=== PATIENT | male | born 1975 | race Caucasian/White ===

== ENCOUNTER 2019-02-16 14:28 | Outpatient (CLI) | payer MEDICAID, SELFPAY ==
--- NOTE | 2019-02-16 14:41 | DI.RAD_ITS ---
EXAM: XR KNEE LT 3V AP,LAT,DELORES INDICATION: Knee Pain. COMPARISON: No exams were available for comparison TECHNIQUE: 2D digital imaging was performed. FINDINGS: Joint spaces are well maintained. There is minimal periarticular spurring. No joint effusion is see n. IMPRESSION: Minimal degenerative changes.
== END 2019-02-16 14:48 ==
PROVIDERS: Visit Provider Student in an Organized Health Care Education/Training Program
DX: M25.562 Pain in left knee (principal); M17.12 Unilateral primary osteoarthritis, left knee
CPT/HCPCS: 73562

== ENCOUNTER 2019-02-25 01:50 | Outpatient (CLI) | payer MEDICAID, SELFPAY ==
--- NOTE | 2019-02-25 10:12 | DI.MRI_ITS ---
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 TECHNIQUE: Multiplanar multisequence MRI was performed. COMPARISON: XR KNEE LT 3V AP,LAT,DELORES from 02/16/2019 FINDINGS: There is a small joint effusion. There are small focal defects at the apex of the patellar cartilage . A larger area, measuring 9 millimeters, of high signal is seen within the cartilage of the medial patellar facet. It involves the entire cartilage thickness but there is no focal thinning. The unde rlying marrow signal is normal. Patellar retinacula and extensor mechanism appear intact. The cruciate and collateral ligaments appear intact. There is mild metallic artifact in the region o f the posterior horn of the medial meniscus consistent with previous surgery. No superimposed tear i s seen. The posterior horn and body appear diminutive and show intrasubstance signal. The lateral m eniscus shows mild intrasubstance signal consistent with degeneration. No cartilage defects are seen involving the femoral condyles or tibial plateaus. IMPRESSION: No evidence of lateral meniscal tear. Postsurgical appearance of the posterior horn and body of the medial meniscus without definite superimposed tear. Small focal cartilage defect at the apex of the patella. High signal in the cartilage of the medial patellar facet extending down to bone without focal defect.
== END 2019-02-25 02:10 ==
PROVIDERS: Visit Provider Student in an Organized Health Care Education/Training Program
DX: M25.562 Pain in left knee (principal); M22.42 Chondromalacia patellae, left knee; M23.92 Unspecified internal derangement of left knee; M23.204 Derangement of unspecified medial meniscus due to old tear or injury, left knee
CPT/HCPCS: 73721

== ENCOUNTER 2020-03-09 02:33 | Outpatient (CLI) | payer MEDICAID, SELFPAY ==
--- NOTE | 2020-03-09 08:50 | DI.MRI_ITS ---
EXAM: MR LOWER JOINT LT WO CLINICAL HISTORY: Failed nonop,MEDIAL MENISCUS TEAR,CHONDROMALACIA,DERANGEMENT TECHNIQUE: Multiplanar multisequence MRI of the knee was performed. COMPARISON: MR MR LOWER JOINT LT WO from 02/25/2019 FINDINGS: EFFUSION: There is a small joint effusion. There is no Howard cyst in the popliteal fossa. MARROW:There is no evidence of fracture or prominent bone contusion. A small degenerative subarticul ar cyst is noted in the inner aspect of the medial tibial plateau, unchanged. There are no significa nt osseous lesions. PATELLOFEMORAL COMPARTMENT: The quadriceps tendon is intact. The patellar ligament is intact. Again noted is area of significant signal abnormality in retropatellar cartilage the most medial aspe ct of the medial facet which again is noted to involve the entire thickness of the cartilage but with out significant focal thickening nor abnormal intraosseous signal within the subjacent patella. Ther e is also again noted a small superficial defect in the retropatellar cartilage over the mid aspect, unchanged.There is no abnormal intraosseous signal nor fracture evident within the patella. No suero lar retinacular tears and no evidence to suggest recent patellar dislocation. CRUCIATE LIGAMENTS: The anterior cruciate ligament is intact.The posterior cruciate ligament is intac t. MEDIAL COMPARTMENT/MEDIAL MENISCUS: There is subtle evidence of prior meniscal surgery. There is a t ear of the posterior horn of medial meniscus. Tear configuration is somewhat complex but the root of the posterior horn appears intact. There is no meniscocapsular separation. There is mild extrusion of the anterior horn. There is minimal signal abnormality in the overlying hyaline cartilage over the medial femoral condyl e. No osteochondral defects. No subarticular bone edema. There is a small marginal osteophyte off the inner aspect of the medial femoral condyle again noted. MEDIAL COLLATERAL LIGAMENT: Intact LATERAL COMPARTMENT/LATERAL MENISCUS: There is no evidence of lateral meniscal tear.There are no christopher dral defects, osteochondral defects, subarticular marrow edema, nor osteophytes evident. ILIOTIBIAL BAND: Intact LATERAL COLLATERAL LIGAMENT COMPLEX: The fibular collateral ligament is intact. The biceps femoris t endon is intact.Popliteus muscle and tendon are intact. IMPRESSION: 1. There is a evidence of prior medial meniscal surgery. 2. There is mildly complex tear of the posterior horn of the medial meniscus evident. No prominent e xtrusion nor intrusion. No bone edema or osteochondral defects. 3. Cruciate and collateral ligaments are intact 4. The previously described abnormalities in the retropatellar cartilage appear unchanged from the pr ior MRI study performed 1 year ago. DATA REPOSITORY:
== END 2020-03-09 02:53 ==
PROVIDERS: PCP Nurse Practitioner Family; Visit Provider Student in an Organized Health Care Education/Training Program
DX: S83.232A Complex tear of medial meniscus, current injury, left knee, initial encounter (principal); M22.42 Chondromalacia patellae, left knee
CPT/HCPCS: 73721

== ENCOUNTER 2020-04-13 07:50 | Day surgery (SDC) | payer MEDICAID, SELFPAY ==
[2020-04-13] VITALS (9 sets, daily range): BP systolic 109–137; BP diastolic 53–80; PULSE 55–71; RESP 10–17; TEMP 36.3–36.7; O2SAT 96–98
[2020-04-13] MEDS: Lactated Ringers 1,000 ML 100 ML IV (08:26)
[2020-04-13] MEDS: ceFAZolin 2 GM/50 ML BAG IVPB (10:17)
[2020-04-13] MEDS: EPINEPHrine 30 MG/30 ML VIAL (11:04)
--- NOTE | 2020-04-13 12:14 | W.PM.OP ---
Date of service: 04/13/20 Time of Service: 11:30 Operative Note Operative Note DATE OF PROCEDURE: 04/13/20 PRE-OP DIAGNOSIS: Left knee 1. Medial meniscus re-tear 2. Hardware failure POST-OP DIAGNOSIS: same PROCEDURE: Left knee 1. Partial medial meniscectomy, CPT #98736 2. Removal of hardware, CPT # 54223 SURGEON: Eusebio Mejia IMPROVEMENT DIRECTOR: Manas Sagastume ANESTHESIA TYPE: Local By Surgeon and General LMA/ETT Refer to Anesthesia Record ESTIMATED BLOOD LOSS: 5 PATHOLOGY: none sent TOURNIQUET TIME: 0 COMPLICATIONS: None Patient was transported to: PACU Patient's condition: stable Indications: Please see complete medical record for details. Findings: Significant retear posterior horn medial meniscus body with radial and horizontal extension and unstable flaps at both the anterior and posterior margins. Loose failure of prior all inside repair device. Localized grade 2?3 chondromalacia most posterior tibial plateau. Mild patellofemoral synovitis. Intact ACL, PCL, lateral compartment, and lateral meniscus. Procedure Description: In the operating room, genral anesthesia was induced. The patient was positioned supine on the operating room table. All bony prominences were well-padded. Preoperative antibiotics were administered. The knee was prepped and draped in the usual sterile fashion. The correct patient, procedure, and side of the procedure were all verified prior to incision. Exam under anesthesia was performed. 10 cc of 1% lidocaine containing epinephrine was infiltrated about the previous anterior medial and anterior lateral knee arthroscopy portals. The prior surgeons portals were established and a complete diagnostic arthroscopy was performed with relevant findings detailed above. The probe was used to examine the medial meniscus complex tear. There was significant fraying loose cartilage flaps both superiorly, inferiorly, anterior and posterior. The radial extension was near the meniscocapsular junction. There was obvious failure of at least one of the all inside devices with exposed suture and plastic material. A meniscal biter was then used to amputate the free flaps anteriorly and posteriorly. A mechanical shaver was then used to morselized and remove this tissue. A pituitary grasper was then used to retrieve in entirety the loose all inside meniscus repair device that had failed about this retear. There were no obvious additional devices although the prior operative report stated 5 in total had been placed. Meniscal biters were then used to contour the meniscal remnant and remove additional tissue as needed until a stable rim was established into medical body and across the posterior horn near the root. Work and viewing was alternate between portals. The shaver was then used to ensure stable tissue remained and all frayed and unstable tissue have been removed. The probe confirmed stable medial meniscus margin, stable meniscal root, and exposed an additional suture about the radial most aspect of the tear that was loose and removed using meniscal biter. The arthroscope was directed through the notch posteriorly there was no additional meniscal capsular tear or hardware present posteriorly. Care was taken to preserve as much meniscus tissue as possible. The meniscal remnant was fairly blake and preserved in the posterior horn and body with the majority of the injury zone being at the junction however the radial extent was not subtotal and there was a superior cuff of tissue that remained. Mild cartilage fraying of the posterior tibia was debrided using mechanical shaver. In extension mechanical shaver was used to debride mild synovitis in the patellofemoral compartment. Under direct arthroscopic visualization an 18-gauge needle was passed into the knee from superior lateral to the superior patellar pouch. The knee was copiously irrigated with arthroscopic fluid until there was a clear effluent before being drained of all fluid. The anteromedial anterolateral portals were closed in 3-0 Monocryl in a buried interrupted fashion. 20 cc of 1% lidocaine with epinephrine containing 4 mg of morphine was infiltrated into the knee through the previously placed needle. Mastisol, Steri-Strips, dry 4 x 4 gauze, and sterile soft roll wrapped about the knee. The right lower extremity was then wrapped in a gentle compressive Matthew bandage. The patient awoke from anesthesia without complication and was transferred to the recovery room in a stable condition.
--- NOTE | 2020-04-13 12:19 | PDOC.DSDIS_ITS ---
Discharge Plan Disposition Patient Disposition: HOME Condition: Stable Discharge Details Reason For Visit: Left knee surgery Attending Provider: Eusebio Mejia Primary Care Provider: Montse Emanuel Home Meds and New Rx's Prescriptions: New aspirin 81 mg tablet,delayed release (DR/EC) 81 mg PO DAILY 30 Days Qty: 30 RF: 0 naproxen 250 mg tablet 250 - 500 mg PO BID PRN (Reason: Moderate pain or swelling) Qty: 60 RF: 0 oxycodone 5 mg tablet 5 - 10 mg PO Q4H PRN (Reason: moderate to severe pain) Qty: 16 RF: 0 Discharge Instructions Additional Instructions: Surgery: Knee arthroscopy with partial medial meniscectomy and removal of hardware Activity: Weightbearing as tolerated. Advance range of motion as comfort allows. No knee brace or crutches needed as soon as comfortable. No deep knee flexion for 6 weeks. Recommend avoiding cutting, pivoting, sports, or squatting for 8 weeks. A physical therapy prescription will be sent electronically to start in 2 to 3 weeks. Prescriptions: Aspirin 81 mg take 1 daily to prevent a blood clot for 30 days Naproxen 250 mg take 1-2 every 12 hours with a meal as needed for moderate pain Oxycodone 5 mg take 1-2 every 4-6 hours as needed for severe pain You may use [id number] Tylenol (acetaminophen) as needed for mild pain. These pain medications may be taken all at once or in different combinations as needed. Also, recommend Colace (docusate) as a stool softener as surgery and pain medicine cause constipation. Dressings: Leave dressing in place for 2-3 days. May then remove and leave open to air or cover incisions with Band-Aids. May shower after 5 days. Follow-up: 10-[address] Mejia Let us know right away if you develop any redness, drainage, fevers, chest pain, or trouble breathing. Do not drink alcohol or drive for at least 24 hours after anesthesia. Please call the office during business hours with any questions or concerns. Referrals: Eusebio Mejia MD [ [facility] STAFF PHYSICIAN] - Discharge Orders Discharge Orders: Discharge Order (Routine); Ordered 04/13/20 Ordered By: Eusebio Mejia DS: Diagnosis Discharge Diagnosis (1) Chondromalacia patellae of left knee: Status: Acute (2) Medial meniscus tear: Status: Acute
[2020-04-13] MEDS: fentaNYL 100 MCG/2 ML VIAL IVP (12:22)
[2020-04-13] MEDS: oxyCODONE 5 MG TAB PO (13:28)
== END 2020-04-13 14:30 | disposition home or self-care (01) ==
PROVIDERS: PCP Nurse Practitioner Family; Visit Provider Student in an Organized Health Care Education/Training Program
PROC: (CPT 29870; principal; 2020-04-13 10:00)
DX: T84.89XA Other specified complication of internal orthopedic prosthetic devices, implants and grafts, initial encounter (principal); M23.222 Derangement of posterior horn of medial meniscus due to old tear or injury, left knee
CPT/HCPCS: 29881; 20680; J0690; J1100; J1885; J2001; J2250; J2405; J2704; J3010

== ENCOUNTER 2020-11-09 02:37 | Outpatient (CLI) | payer MEDICAID, SELFPAY ==
--- NOTE | 2020-11-09 08:40 | DI.MRI_ITS ---
Exam(s) MR LOWER JOINT LT WO EXAM: MR LOWER JOINT LT WO CLINICAL HISTORY: Recurrent medial meniscus tear, CHRONROMALACIA PATELLAE LT, HYPEREXTENSION. TECHNIQUE: Multiplanar multisequence MRI was performed. COMPARISON: MR MR LOWER JOINT LT WO from 03/09/2020 FINDINGS: BONES: No evidence for fracture. Mild marrow edema is seen in the anterior aspect of the lateral tib ial plateau. This may represent a contusion. Please correlate clinically. JOINTS: There is hyperintense signal seen in the patellar cartilage at the medial aspect of the media l facet. There is also mild thinning of the articular cartilage again seen overlying the patella. T here is a small amount of fluid in the joint space. TENDONS: Extensor mechanism: Unremarkable. Medial retinaculum: Unremarkable. Lateral retinaculum: Unremarkable. Popliteus: Unremarkable. MUSCLES: Unremarkable. MENISCI: There is a decrease in size of the posterior horn of the medial meniscus which may reflect m eniscal surgery. No evidence to suggest a displaced meniscal fragment is seen. There is no new abno rmal signal is seen within the medial meniscus to suggest a new tear. The lateral meniscus is unrema rkable. SOFT TISSUES: Unremarkable. LIGAMENTS: Anterior Cruciate: Unremarkable. Posterior Cruciate: Unremarkable. Medial Collateral:Unremarkable. Lateral Collateral: Unremarkable. OTHER: IMPRESSION: 1. Chondromalacia patella. 2. No evidence of an acute meniscal or ligament tear. 3. Marrow edema in the anterior aspect of the lateral tibial plateau without evidence of a fracture. DATA REPOSITORY:
== END 2020-11-09 02:57 ==
PROVIDERS: PCP Nurse Practitioner Family; Visit Provider Student in an Organized Health Care Education/Training Program
DX: M22.42 Chondromalacia patellae, left knee (principal); S89.82XA Other specified injuries of left lower leg, initial encounter; X58.XXXA Exposure to other specified factors, initial encounter
CPT/HCPCS: 73721

== ENCOUNTER 2021-05-17 00:25 | Outpatient (CLI) | payer MEDICAID, SELFPAY ==
--- NOTE | 2021-05-17 07:59 | DI.RAD_ITS ---
Exam(s) XR TOE RT GREAT EXAM: XR TOE RT GREAT CLINICAL HISTORY: TOE PAIN, M79.676. TECHNIQUE: 2D digital imaging was performed. COMPARISON: CR LEFT FOOT COMPLETE from 04/06/2009 FINDINGS: Three dedicated views of great toe No evidence of acute fracture nor dislocation. There is a tiny 1 millimeter osteophytic density seen just medial to base of the proximal phalanx of the toe. This does not have the appearance of an acu te fracture fragment. The great toe metatarsophalangeal joint appears unremarkable with no significa nt narrowing erosions this joint nor in the interphalangeal joint. Visualized ipsilateral Lisfranc j oint appears unremarkable. Bone density normal. The sesamoid bones subjacent to the great toe metat arsal head appear unremarkable. IMPRESSION: DATA REPOSITORY: RADIATION DOSE DELIVERED:
== END 2021-05-17 00:45 ==
PROVIDERS: PCP Nurse Practitioner Family; Visit Provider Nurse Practitioner Family
DX: M79.674 Pain in right toe(s) (principal)
CPT/HCPCS: 73660

== ENCOUNTER 2021-11-21 08:50 | Outpatient (REF) | payer MEDICAID, SELFPAY ==
[2021-11-21 14:28] LABS: HCT 43.5 % (40.0-50.0); MCH 29.4 pg (27.0-33.0); MCHC 34.5 % (32.0-36.0); MCV 85 fL (80-95); MPV 10.8 fL (8.0-11.0); Platelet Count 242 10^3/uL (130-400); RBC 5.11 10^6/uL (4.36-5.78); RDW 12.4 % (11.8-14.1); RDW-SD 38.5 fL; WBC 3.87 10^3/uL (4.4-10.8)
[2021-11-21 14:54] LABS: ALT 54 U/L (16-63); AST 24 U/L (15-37); Albumin 4.3 g/dL (3.4-5.0); Alkaline Phosphatase 68 U/L (46-116); BUN 23 mg/dL (7-18); Bilirubin, Total 0.5 mg/dL (0.2-1.0); Calcium 8.9 mg/dL (8.5-10.1); Chloride 102 mmol/L (98-107); Estimated GFR 94.59 (mL/min/1.73m2); Glucose 90 mg/dL (74-106); Potassium 4.6 mmol/L (3.5-5.1); Sodium 137 mmol/L (136-145); Total Protein 7.1 g/dL (6.4-8.2)
[2021-11-22 20:43] LABS: PSA, Screening 0.3 ng/mL (<=2.5)
== END 2021-11-21 08:51 | disposition home or self-care (01) ==
LOC: NCHCN 08:50
PROVIDERS: PCP Nurse Practitioner Family; Visit Provider Nurse Practitioner Family
DX: Z00.00 Encounter for general adult medical examination without abnormal findings (principal); Z12.5 Encounter for screening for malignant neoplasm of prostate
CPT/HCPCS: 80053; 84153; 85027

== ENCOUNTER 2022-02-13 14:21 | Emergency (ER) | payer MEDICAID, SELFPAY ==
[2022-02-13 14:49] VITALS: BP 116/78; PULSE 88; RESP 22; TEMP 36.7; O2SAT 95
--- NOTE | 2022-02-13 15:31 | W.ED.GENAD ---
Discharge Plan Disposition Patient Disposition: Home Condition: Stable Discharge Details Clinical Impression: Bronchitis Primary Care Provider: Montse Emanuel ED Provider: Tammy Chaudhary Home Meds and New Rx's Prescriptions: New prednisone 20 mg tablet 40 mg PO DAILY Qty: 10 0RF Continued naproxen 250 mg tablet 250 - 500 mg PO BID PRN (Reason: Moderate pain or swelling) Qty: 60 0RF Discharge Instructions Instructions: Acute Bronchitis (ED) Additional Instructions: For the next 5 days take the prednisone as prescribed Take the inhaler, 2 puffs every 4-6 hours Take the Mucinex for cough Afrin as needed for nasal congestion, do not use for longer than 3 days Return earlier should you have new or worsening complaints including fever, chills, shortness of breath Referrals: Montse Emanuel [Primary Care Provider] - 1 day Discharge Data Discharge Date/Time-TO BE ENTERED AT DEPARTURE: 02/13/22 16:05 Medical Decision Making This 46-year-old gentleman presents with upper respiratory symptoms for the past 3 weeks intermittently. Patient appears well, no indication for chest x-ray, lungs clear to auscultation Given albuterol, prednisone Afebrile and nontoxic Return precautions reviewed and patient expressed Recheck in 1 week with persistent symptoms Medical Records Medical records reviewed: Yes I reviewed the patient's medical records. Lab Data Lab results reviewed: Yes I reviewed the patient's lab results. HPI General Date/Time Provider Initiated Documentation: 02/13/22 15:24. HPI Narrative: This patient presents with cough, fatigue, and difficulty sleeping. He states he is also had rhinorrhea. Denies fever or chills Related Data Home Medications Medication Instructions Recorded Confirmed naproxen 250 mg tablet 250 - 500 mg PO BID PRN Moderate 04/13/20 11/26/21 pain or swelling #60 tabs prednisone 20 mg tablet 40 mg PO DAILY #10 tabs 02/13/22 Previous Rx's Medication Instructions Recorded naproxen 250 mg tablet 250 - 500 mg PO BID PRN Moderate 04/13/20 pain or swelling #60 tabs prednisone 20 mg tablet 40 mg PO DAILY #10 tabs 02/13/22 Allergies Allergy/AdvReac Type Severity Reaction Status Date / Time No Known Allergies Allergy Unverified 11/26/21 08:55 General Stated Complaint: RespSymp DEWEY: 4 Review of Systems All systems reviewed & are unremarkable except as noted in HPI and below PFSH All Active Problems (Updated 02/13/22 @ 15:32 by RONNI Darling) Bronchitis (Acute) Injury of plantar plate of right foot (Acute ~04/2020) Chondromalacia patellae of left knee (Acute ~11/2018) Medial meniscus tear (Acute ~02/2017) Hyperextension injury of left knee (Acute) Medical History (Updated 02/13/22 @ 15:32 by RONNI Darling) Dermatofibroma Internal derangement of left knee Right testicular pain (10/31/16) Surgical History History of hip surgery Repair of inguinal hernia (10/31/15) RIGHT WITH LARGE MESH AND PLUG/[facility] DR. WARREN Social History Smoking/Tobacco Use Status: Never Smoking risk assessment performed?: Yes Alcohol Intake: never Drug use: Never Substance use type: does not use Current gender identity: male Do you feel safe at home: Yes Do you feel safe in your relationship?: Yes Exam Const General: cooperative, comfortable and no acute distress Orientation: alert and oriented x3 Resp Effort & Inspection: normal respiratory effort Auscultation: clear to auscultation bilaterally Cardio Rate: regular rate Rhythm: regular rhythm Neuro General: patient alert and patient oriented x3 Course Vital Signs Vital signs: Vital Signs Temperature 36.7 C 02/13/22 14:49 Pulse 88 02/13/22 14:49 Respiratory Rate 22 02/13/22 14:49 Blood Pressure 116/78 02/13/22 14:49 Pulse Oximetry 95 02/13/22 14:49 Temperature 36.7 C 02/13/22 14:49 Temperature Source Oral 02/13/22 14:49 Pulse 88 02/13/22 14:49 Respiratory Rate 22 02/13/22 14:49 Respiratory Effort Non-Labored 02/13/22 14:54 Respiratory Depth Normal 02/13/22 14:54 Blood Pressure 116/78 02/13/22 14:49 Blood Pressure Position Sitting 02/13/22 14:49 Pulse Oximetry 95 02/13/22 14:49 Oxygen Delivery Method Room Air 02/13/22 14:49 Oxygen Flow Rate 0 02/13/22 14:49 Pain Level 0 02/13/22 14:49
[2022-02-13] MEDS: Albuterol HFA 8 GM 60 PUFF INH IH (16:03)
[2022-02-13 16:04] VITALS: BP 116/78; PULSE 88; RESP 22; TEMP 36.7; O2SAT 95
== END 2022-02-13 16:05 | disposition home or self-care (01) ==
PROVIDERS: Emergency Provider Physician Assistant; PCP Nurse Practitioner Family
DX: J40 Bronchitis, not specified as acute or chronic (principal)
CPT/HCPCS: 94640; 99283

== ENCOUNTER 2022-05-06 09:15 | Outpatient (CLI) | payer MEDICAID, SELFPAY ==
--- NOTE | 2022-05-06 09:00 | DI.RAD_ITS ---
Exam(s) XR ELBOW LT COMPLETE EXAM: XR ELBOW LT COMPLETE CLINICAL HISTORY: elbow pain. TECHNIQUE: 2D digital imaging was performed of the left elbow. Three images were obtained. AP, lat eral and oblique views were obtained. COMPARISON: No exams were available for comparison FINDINGS: BONES: No acute fracture is present. No bony destructive lesion is seen. JOINTS: The elbow is normally aligned. No joint effusion is seen. SOFT TISSUE: Normal. IMPRESSION: Unremarkable radiographs of the left elbow. DATA REPOSITORY: RADIATION DOSE DELIVERED:
== END 2022-05-06 09:16 | disposition home or self-care (01) ==
LOC: DIORS 09:16
PROVIDERS: PCP Nurse Practitioner Family; Referring Provider Nurse Practitioner Family; Visit Provider Physician Assistant
DX: M25.522 Pain in left elbow (principal)
CPT/HCPCS: 73080

== ENCOUNTER 2022-05-26 00:34 | Outpatient (CLI) | payer MEDICAID, SELFPAY ==
--- NOTE | 2022-05-26 07:00 | DI.MRI_ITS ---
Exam(s) MR LOWER EXTREMITY RT WO EXAM: MR LOWER EXTREMITY RT WO CLINICAL HISTORY: ? PLANTAR PLATE RUPTURE,injury,s99.921a TECHNIQUE: Multiplanar multisequence MRI was performed. COMPARISON: CR XR TOE RT GREAT from 05/17/2021 FINDINGS: MARROW/ARTICULATIONS:There is no evidence of fracture, bone contusion, nor erosions and there are no degenerative subarticular cysts nor osteophytes. Small amount of increased fluid in the great toe me tatarsophalangeal joint noted. Other MTP joints appear unremarkable. There are no para-articular ga nglions evident. There is no abnormal intraosseous signal seen within the 2 sesamoid bones subjacent to the great toe metatarsal head. No since of bipartite sesamoid bone. TENDONS: Extensor tendons appear unremarkable. No tear nor tenosynovitis. Flexor hallucis longus appears intact. No abnormal signal. No tear. No tenosynovitis. Mild tenosy novitis of the flexor or tendon of the 2nd toe at the level of the distal proximal phalanx. No obvio us tendon tears. COLLATERAL LIGAMENTS: There are no obvious tears of the main medial lateral collateral ligaments. Ho wever, there is some signal abnormality evident within the accessory collateral ligament of the great toe MTP joint on the lateral aspect of the joint consistent with sprain of this structure. There do es not appear to be complete disruption of this structure. PLANTAR PLATES: There is signal abnormality in the plantar plate region of the great toe MTP joint co nsistent with injury at this level. IMPRESSION: 1. No evidence of fracture, bone contusions, degenerative subarticular cysts, nor erosions. There ar e also no fractures of the sesamoid bones subjacent to the great toe metatarsal head. Small joint ef fusion noted in the great toe metatarsophalangeal joint. 2. Mild increased signal evident within the accessory collateral ligaments of the great toe MTP joint lateral aspect consistent with partial tear or sprain of this structure. The main collateral ligame nts are intact. 3. Increased signal in the plantar plate region of the great toe MTP joint also evident. DATA REPOSITORY:
--- NOTE | 2022-05-26 18:30 | DI.VRAD_ITS ---
PROCEDURE INFORMATION: Exam: MR Right Lower Extremity Without Contrast; Forefoot Exam date and time: 05/26/2022 9:42 AM Age: 46 years old Clinical indication: Other: Plantar plate injury TECHNIQUE: Imaging protocol: MR of the right foot without contrast. Exam focused on the forefoot. COMPARISON: CR XR TOE RT GREAT 05/17/2021 7:54 AM FINDINGS: Bones/joints: No acute fracture. LIGAMENTS: Collateral ligaments of digits: The proper medial and lateral collateral ligaments are normal appearance. However, edema and thickening is seen within the accessory collateral ligaments of the MTP joint of the great toe, lateral greater than medial, consistent with ligamentous sprains. Edema, discontinuity and irregularity within the lateral sesamoid phalangeal ligament, with irregularity and thinning of the medial sesamoid phalangeal ligament at the level of the 1st MTP joint. Plantar plates: Irregularity within the distal attachment of the plantar plate of the MTP joint of the great toe, most consistent with a plantar plate injury. Slight posterior subluxation of the lateral/fibular sesamoid bone. Irregularity, edema and discontinuity within the plantar plate of the 2nd MTP joint, lateral greater than medial, concordant with a plantar plate injury, with medial subluxation of the 2nd flexor tendon. The remaining plantar plates are intact. TENDONS: Flexor tendons of foot: Mild flexor hallucis longus tendinosis without tear. Mild tendinosis and tenosynovitis within the 2nd flexor digitorum profundus and superficialis tendons, with a subtle, longitudinal tear seen within the flexor digitorum profundus tendon at the level of the MTP joint. No full-thickness tear or rupture. Minimal tendinosis within the 3rd and 4th flexor tendons without tear. The remaining flexor tendons are normal appearance. Extensor tendons of foot: No acute tear or rupture. Soft tissues: Mild edema and fluid surrounding the plantar aspect of the 2nd and 3rd MTP joints. No focal fluid collection or hematoma. IMPRESSION: 1. Plantar plate injuries involving the 1st and 2nd MTP joints, described above. 2. Focal low-grade longitudinal split tear within the 2nd flexor digitorum profundus tendon at the level of the MTP joint. Dictated and Authenticated by: Sharmin Renae MD. Ordering:SUHAS Kaplan MD
== END 2022-05-26 00:54 ==
LOC: DI 00:35
PROVIDERS: PCP Nurse Practitioner Family; Visit Provider Student in an Organized Health Care Education/Training Program
DX: S99.921A Unspecified injury of right foot, initial encounter (principal)
CPT/HCPCS: 73718

== ENCOUNTER 2022-05-27 17:33 | Outpatient (REF) | payer MEDICAID, SELFPAY ==
[2022-05-27 14:30] LABS: HCT 42.8 % (40.0-50.0); HGB 15.1 g/dL (13.5-17.5); MCHC 35.3 % (32.0-36.0); MCV 85 fL (80-95); MPV 10.8 fL (8.0-11.0); Platelet Count 180 10^3/uL (130-400); RBC 5.04 10^6/uL (4.36-5.78); RDW 12.7 % (11.8-14.1); RDW-SD 38.7 fL
[2022-05-27 14:51] LABS: Calculated LDL 170 mg/dL (<100); Cholesterol 227 mg/dL (<200); HDL Cholesterol 39 mg/dL (40-60); Triglyceride 93 mg/dL (<150)
[2022-05-27 16:03] LABS: Abs Immature Grans 0.01 10^3/uL (0.0-0.06); Absolute Basophil Count 0.04 10^3/uL (0.0-0.2); Absolute Eosinophil Count 0.17 10^3/uL (0.0-0.7); Absolute Lymphocyte Count 1.26 10^3/uL (1.2-3.4); Absolute Monocyte Count 0.64 10^3/uL (0.1-0.8); Absolute Neutrophil Count 1.42 10^3/uL (1.2-6.7); Basophils % 1.1; Eosinophils % 4.8; Immature Grans % 0.3; Lymphocytes % 35.6; Monocytes % 18.1; Neutrophils % 40.1
== END 2022-05-27 17:34 | disposition home or self-care (01) ==
LOC: NCHCN 17:33
PROVIDERS: PCP Nurse Practitioner Family; Visit Provider Nurse Practitioner Family
DX: D72.819 Decreased white blood cell count, unspecified (principal); Z13.220 Encounter for screening for lipoid disorders
CPT/HCPCS: 80061; 85027; 85007

== ENCOUNTER 2023-02-11 14:58 | Outpatient (REF) | payer MEDICAID, SELFPAY ==
[2023-02-11 20:57] LABS: Abs Immature Grans 0.02 10^3/uL (0.0-0.06); Absolute Basophil Count 0.09 10^3/uL (0.0-0.2); Absolute Eosinophil Count 0.06 10^3/uL (0.0-0.7); Absolute Lymphocyte Count 1.72 10^3/uL (1.2-3.4); Absolute Monocyte Count 0.56 10^3/uL (0.1-0.8); Absolute Neutrophil Count 6.11 10^3/uL (1.2-6.7); Basophils % 1.1; Eosinophils % 0.7; HCT 42.4 % (40.0-50.0); HGB 14.7 g/dL (13.5-17.5); Immature Grans % 0.2; Lymphocytes % 20.1; MCH 29.2 pg (27.0-33.0); MCHC 34.7 % (32.0-36.0); MCV 84 fL (80-95); MPV 10.2 fL (8.0-11.0); Monocytes % 6.5; Neutrophils % 71.4; Platelet Count 293 10^3/uL (130-400); RBC 5.03 10^6/uL (4.36-5.78); RDW 12.5 % (11.8-14.1); RDW-SD 37.7 fL; WBC 8.56 10^3/uL (4.4-10.8)
[2023-02-11 21:08] LABS: ALT 50 U/L (16-63); AST 20 U/L (15-37); Albumin 4.4 g/dL (3.4-5.0); Alkaline Phosphatase 74 U/L (46-116); Anion Gap 9.4 mmol/L (3-11); BUN 20 mg/dL (7-18); Bilirubin, Total 0.4 mg/dL (0.2-1.0); CO2 30.6 mmol/L (21.0-32.0); CREATININE 1.1 mg/dL (0.70-1.30); Calcium 9.7 mg/dL (8.5-10.1); Chloride 101 mmol/L (98-107); Estimated GFR 83.84 (mL/min/1.73m2); Glucose 84 mg/dL (74-106); Potassium 4.6 mmol/L (3.5-5.1); Sodium 141 mmol/L (136-145); Total Protein 7.3 g/dL (6.4-8.2)
[2023-02-12 19:31] LABS: PSA, Screening 0.4 ng/mL (<=2.5)
[2023-02-17 17:22] LABS: Testosterone, Total 232 ng/dL (240-950)
== END 2023-02-11 14:59 | disposition home or self-care (01) ==
LOC: NCHCN 14:58
PROVIDERS: PCP Nurse Practitioner Family; Visit Provider Nurse Practitioner Family
DX: R53.83 Other fatigue (principal)
CPT/HCPCS: 80053; 82306; 84153; 84403; 85025

== ENCOUNTER 2023-02-27 07:41 | Day surgery (SDC) | payer MEDICAID, SELFPAY ==
--- NOTE | 2023-02-26 16:45 | W.ANESPRE ---
General Info Date of Service Date Performed: 02/27/23 Height: 6 ft Weight: 96.162 kg Body Mass Index (BMI): 28.7 Surgical Procedure: Operation Date: 02/27/23 09:05 Proposed Procedure Side Surgeon p Colonoscopy/Gastroscopy Dustin Izquierdo MD Meds Allergies and Home Medications Allergies Allergy/AdvReac Type Severity Reaction Status Date / Time No Known Allergies Allergy Unverified 02/27/23 07:50 Home Medication Medication Instructions Recorded bisacodyl 5 mg tablet,delayed 5 mg PO ONCE colonscopy bowel prep 02/17/23 release (Dulcolax (bisacodyl)) #8 tabs docusate sodium 100 mg capsule 100 mg PO DAILY 02/17/23 (Colace) polyethylene glycol 3350 17 238 g PO ONCE colonoscopy prep 02/17/23 gram/dose oral powder #238 grams Current Visit Medications: Current Medications Generic Name Dose Route Start Last Admin Trade Name Freq PRN Reason Stop Dose Admin IV Miscellaneous Supplies 1 each 02/27/23 06:00 Iv Access IV 02/27/23 23:59 DIRECTED KALPESH Sodium Chloride 0 ml 02/27/23 06:00 Normal Saline Flush 10 Ml Syr IV 02/27/23 23:59 PRN PRN Sodium Chloride 0 ml 02/27/23 06:00 Normal Saline 10 Ml Vial IJ 02/27/23 23:59 DIRECTED PRN Sterile Water 0 ml 02/27/23 06:00 Water,Injection,Sterile 10 Ml Vial IJ 02/27/23 23:59 DIRECTED PRN PFSH Active Problems Active Problems: Problem Status Onset Code Foot pain, right M79.671 Medial epicondylitis of left elbow M77.02 Left elbow pain M25.522 Injury of plantar plate of right foot ~04/2020 S99.921A Chondromalacia patellae of left knee ~11/2018 M22.42 Medial meniscus tear ~02/2017 S83.249A Hyperextension injury of left knee S89.82XA Medical History Medical History Dermatofibroma Right testicular pain (10/31/16) Internal derangement of left knee Surgical History Surgical History H/O arthroscopy of left knee History of hip surgery Repair of inguinal hernia (10/31/15) RIGHT WITH LARGE MESH AND PLUG/[facility] DR. WARREN Tobacco Smoking/Tobacco Use Status: Former Tobacco Use Alcohol Alcohol Intake: never Substance Use Substance use: Never Substance use type: does not use Vital Signs and Lab Results Vital Signs Most Recent Vital Signs in EMR: Temp Pulse Resp BP Pulse Ox 36.6 C 72 18 113/86 99 02/27/23 07:45 02/27/23 07:45 02/27/23 07:45 02/27/23 07:45 02/27/23 07:45 Lab Results Blood Type / Crossmatch: No Data to Display Complete Blood Count: White Blood Count 8.56 10^3/uL (4.4-10.8) 02/11/23 14:40 Red Blood Count 5.03 10^6/uL (4.36-5.78) 02/11/23 14:40 Hemoglobin 14.7 g/dL (13.5-17.5) 02/11/23 14:40 Hematocrit 42.4 % (40.0-50.0) 02/11/23 14:40 Platelet Count 293 10^3/uL (130-400) 02/11/23 14:40 Complete Metabolic Panel: Sodium 141 mmol/L (136-145) 02/11/23 14:40 Potassium 4.6 mmol/L (3.5-5.1) 02/11/23 14:40 Chloride 101 mmol/L (98-107) 02/11/23 14:40 Carbon Dioxide 30.6 mmol/L (21.0-32.0) 02/11/23 14:40 BUN 20 mg/dL (7-18) H 02/11/23 14:40 Creatinine 1.1 mg/dL (0.70-1.30) 02/11/23 14:40 Est GFR (CKD-EPI 2020) 83.84 (mL/min/1.73m2) 02/11/23 14:40 Calcium 9.7 mg/dL (8.5-10.1) 02/11/23 14:40 Albumin 4.4 g/dL (3.4-5.0) 02/11/23 14:40 Glucose 84 mg/dL (74-106) 02/11/23 14:40 Liver Function Panel: Alanine Aminotransferase (ALT/SGPT) 50 U/L (16-63) 02/11/23 14:40 Aspartate Amino Transf (AST/SGOT) 20 U/L (15-37) 02/11/23 14:40 Coagulation Panel: No Data to Display Cardiac Panel: No Data to Display Arterial Blood Gas: No Data to Display Venous Blood Gas: No Data to Display Pancreas Panel: No Data to Display Thyroid Panel: No Data to Display Infectious Disease: No Data to Display Blood Cultures: No Data to Display Toxicology Panel: No Data to Display Anesthesia Assessment and Plan Anesthesia History Personal History: No History of Anesthesia Complications Family History: No Family History of Anesthesia Complications Exercise Tolerance Exercise Tolerance: Metabolic Equivalents>4 Pertinent Negatives Pertinent Negatives: No Symptoms of GERD, No Major Cardiovascular Symptoms or Complaints and No Major Pulmonary Symptoms or Complaints Cardiac & Pulmonary Exam Cardiac Exam: Normal S1/S2 Heart Sounds Pulmonary Exam: Clear Bilateral Breath Sounds Implantable Cardiac Device Does patient have a Pacemaker or an ICD?: No Airway Exam Known Difficult Airway: No Mallampati Class: 1 Mouth Opening: Normal (> 3cm) Thyromental Distance: Greater than 3 cm Neck Range of Motion: Full ROM Neck Circumference: Normal Teeth Condition: Normal Dentition ASA Classification ASA Score: ASA 2 Emergency Case?: No NPO Status NPO Status: NPO Clears >2 hours, Solids >8 hours Anesthesia Plan Resuscitation Status: Full Code Anesthesia Technique: General Anesthesia Airway Planned: Natural Airway Pain Management: Surgeon and patient request nerve block Monitors Used: Standard Monitors Preoperative Comments:: 47 yo male for EGD/colo. Sig PMHx: former smoker, Previous Anes: - knee scope, midaz/prop, LMA 4, no issues.
[2023-02-27 07:45] VITALS: BP 113/86; PULSE 72; RESP 18; TEMP 36.6; O2SAT 99
[2023-02-27] MEDS: Lactated Ringers 1,000 ML 80 ML IV (08:20)
[2023-02-27 08:37] VITALS: BMI 28.7
--- NOTE | 2023-02-27 09:23 | BOWEL_PTH ---
PATIENT: Alfonso Weaver LOC: [facility] U#:[id number] AGE/SX: 47/M ROOM: RE02/27/[address]: Dustin Izquierdo : 1975 BED: DIS: 02/27/2023 SPEC #: [id number] RECD: 02/27/23 12:49 STATUS: ROSARIO RE #: [id number] MONTSERRAT: 02/27/23 09:[address]: Dustin Izquierdo DEPT: Surgical Specimen RECD BY: Tammy Singleton ENTERED: 02/27/23 12:51 SP TYPE: Bowel OTHR DR: Montse Emanuel Tissues: 1 - STOMACH BIOPSY 2 - ESOPHAGUS BIOPSY 3 - BIOPSY BOWEL 4 - BIOPSY BOWEL Procedures: GROSS AND MICRO LEVEL 4 Comments: [id number]
[2023-02-27 09:54] VITALS: BP 125/84; PULSE 56; RESP 16; TEMP 36.5; O2SAT 100
--- NOTE | 2023-02-27 09:58 | W.PM.ENDDOP ---
Date of service: 02/27/23 Time of Service: 09:58 Endoscopy Report PROCEDURE DESCRIPTION: PROCEDURES PERFORMED: 1. EGD with biopsies PREOPERATIVE DIAGNOSIS: Hematemesis, occasional GERD POSTOPERATIVE DIAGNOSIS: Very small sliding hiatal hernia SURGEON: Manohar Izquierdo MD INDICATION FOR PROCEDURE: 47-year-old man had an isolated incident of vomiting blood. Separately, he says he has had severe GERD on an occasion. He gets attacks of it for timeframes but then it goes away. He finds he is able to manage it with dietary and lifestyle choices. FINDINGS: D2/D3 = normal - no inflammation D1/bulb = normal - no ulcers or inflammation Pylorus = normal Antrum = normal appearance, no ulcers, no inflammation, cold forceps biopsies were taken to rule out H. pylori routinely Body = normal appearance Fundus = normal, no polyps Cardia = normal Hiatus = very small (subcentimeter) sliding hiatal hernia (Hill grade 1) Distal esophagus = no inflammation, no esophagitis, no M[facility], no stricture. Because of the symptoms I took cold forceps biopsies but presumably they will be normal. Mid esophagus = normal Proximal esophagus/hypopharynx/vocal cords = normal SURVEILLANCE-INTERVAL/FOLLOW-UP: Follow-up with PCP. I do not think surveillance endoscopy will be needed and I do not think antireflux surgery is indicated. Lifestyle and dietary management should be acceptable in the absence of any obvious esophagitis. Specimens: Yes EBL: Minimal COMPLICATIONS: None Procedure in detail: The patient gave written consent and was in agreement with the indications, the potential risks as well as the benefits of the procedure. The patient was taken to the endoscopy suite and laid on their left side. Anesthesia was given which was tolerated well. We performed a timeout and we are in agreement I started the procedure. A well-lubricated endoscope was gently and carefully advanced down the esophagus, into the stomach the scope was and through the pylorus into the duodenum. The scope was then slowly withdrawn with the above-noted findings/interventions. The patient tolerated the procedure well and was then turned for colonoscopy (see separate procedure note).
--- NOTE | 2023-02-27 10:03 | COLE_ITS ---
Date of service: 02/27/23 Time of Service: 10:03 Colonoscopy Report Procedure Description: PROCEDURES PERFORMED: 1. Colonoscopy with cold forceps polypectomy 2. Cold forceps biopsy 3. Anoscopy 4. Internal hemorrhoid banding x 3 PREOPERATIVE DIAGNOSIS: Screening colonoscopy, bowel habit changes, hematochezia, rectal pain POSTOPERATIVE DIAGNOSIS: Normal terminal ileum, colon polyp, grade 2 internal hemorrhoids SURGEON: Manohar Izquierdo MD INDICATION for procedure: 47-year-old man has never had a colonoscopy. He has no family history of colon cancer. He has had new onset and worsening constipation over the last few months. He has seen some bleeding which is also new. He has some pain associated with the bleeding around his rectum on and off. FINDINGS: In the terminal ileum, everything looked normal but I took cold forceps biopsies to rule out the unlikely possibility of IBD. In the transverse colon a small 2-3 mm sessile polyp was removed with cold forceps technique. No diverticular disease. On retroflexion grade 2 internal hemorrhoids are noted at 2 columns. I did not appreciate any obvious charito-anal or anal canal pathology. On anoscopy, no anal canal pathology noted. No fissure. No skin tags. No abscesses. No fistulas. Grade 2 internal hemorrhoids right anterior and right posterior. Left lateral is grade 1. Rubber banding performed at all 3. SURVEILLANCE interval/FOLLOW-UP: 3 - 10 years. If sessile serrate or villous histology (not expected), then in 3 years. Otherwise, 7-10 year followup is acceptable. SPECIMENS: yes EBL: Minimal COMPLICATIONS: None QUALITY of prep: Excellent Procedure in detail: The patient gave written consent and was in agreement with the indications, the potential risks as well as the benefits of the procedure. They were turned from upper endoscopy (see separate procedure note) and anesth esia was continued and I started the colonoscopy portion of the procedure. Digital rectal and visual examination was performed and grossly within normal limits. A well-lubricated flexible colonoscope was then introduced and passed without any notable difficulty all the way to the cecum identified by the ileocecal valve and the appendiceal orifice. The terminal ileum was normal. The scope was then slowly withdrawn with the above-noted findings. After removing the colonoscope I performed a careful perianal and anal canal exam under anesthesia using an anoscope. Findings noted above. The patient tolerated the procedure well and was taken to the PACU in hemodynamically stable condition.
[2023-02-27 10:08] VITALS: BP 112/84; PULSE 55; RESP 18; TEMP 36.6; O2SAT 100
--- NOTE | 2023-02-27 10:10 | W.PM.DSUDISC ---
Date of service: 02/27/23 Time of Service: 10:10 Discharge Plan Disposition Patient Disposition: Home Discharge Details Attending Provider: Dustin Izquierdo Primary Care Provider: Montse Emanuel Home Meds and New Rx's Prescriptions: No Action docusate sodium [Colace] 100 mg capsule 100 mg PO DAILY polyethylene glycol 3350 17 gram/dose powder 238 g PO ONCE Qty: 238 0RF Rx Instructions: take per colonoscopy instructions bisacodyl [Dulcolax (bisacodyl)] 5 mg tablet,delayed release (DR/EC) 5 mg PO ONCE Qty: 8 0RF Rx Instructions: take per colonoscopy instructions Discharge Instructions Additional Instructions: FINDINGS: On upper endoscopy there were no significant findings. Everything looks healthy. Nothing looks inflamed. If you do have acid reflux on occasion, it does not appear to be causing any chronic damage. Nothing was found which might be an explanation for bleeding. On colonoscopy, a small polyp was found and removed. This is why we do colon cancer screening colonoscopies. It is nothing to worry about. He should do another colonoscopy in 7 to 10 years. There were no fissures (tears) found around your anus/rectum. You did have mild hemorrhoid disease which is probably the explanation for your symptoms and banding was performed as we had discussed. You will feel some discomfort for a day or 2 and you can treat this with Tylenol and soaking your bottom and very hot water in the bathtub 2 or 3 times a day. This discomfort and tightness will go away in a day or 2. Stand Alone Forms: Colonoscopy Post Instructions Activity:: Activity as Tolerated Diet:: As Tolerated
--- NOTE | 2023-02-27 10:43 | W.ANESPOSTOP ---
Postoperative Evaluation Date, Time and Location Date Performed: 02/27/23 Time Performed: 10:05 Patient Location: Day Surgery Unit Vital Signs Most Recent Imported Vital Signs: Most Recent Vital Signs Temp Pulse Resp BP Pulse Ox 36.6 C 55 L 18 112/84 100 02/27/23 10:08 02/27/23 10:08 02/27/23 10:08 02/27/23 10:08 02/27/23 10:08 Pain Score Most Recent Pain Score: Most Recent Pain Score Pain Level 4 02/27/23 10:08 Assessment Mental Status: Awake (Alert & Oriented to Patient Baseline) Airway and Respiratory Function: Patent airway with normal (patient baseline) respiratory exam Cardiovascular Function: Hemodynamically Stable Hydration Status: Adequately Hydrated Nausea & Vomiting: No Nausea or Vomiting Pain: Pain is tolerable per patient (Pain is tolerable and from banding sites and also has some abdominal cramping.) Peripheral Nerve Block: Patient did not receive a nerve block Postoperative Comments:: I saw Alfonso after the procedure and encouraged passing gas to improve his abdominal cramping. His banding sites are sore but he states very tolerable.
== END 2023-02-27 10:45 | disposition home or self-care (01) ==
PROVIDERS: PCP Nurse Practitioner Family; Visit Provider Student in an Organized Health Care Education/Training Program
PROC: (CPT 45380; principal; 2023-02-27 09:00)
PROC: (CPT 45380; 2023-02-27 09:00)
DX: K92.0 Hematemesis (principal); K92.1 Melena; R19.4 Change in bowel habit; K64.1 Second degree hemorrhoids; D12.3 Benign neoplasm of transverse colon; K44.9 Diaphragmatic hernia without obstruction or gangrene; K21.9 Gastro-esophageal reflux disease without esophagitis; K22.89 Other specified disease of esophagus
CPT/HCPCS: 45380; 46221; 43239; 00123; 88305; J1885; J2405; J2704

== ENCOUNTER 2023-04-14 15:45 | Outpatient (CLI) | payer MEDICAID, SELFPAY ==
--- NOTE | 2023-04-14 13:45 | DI.RAD_ITS ---
Exam(s) XR KNEE RT 3V AP,LAT,DELORES EXAM: XR KNEE RT 3V AP,LAT,DELORES CLINICAL HISTORY: RIGHT KNEE PAIN. TECHNIQUE: 2D digital imaging was performed of the right knee. Three views obtained. Merchant, AP an d lateral views were obtained. COMPARISON: No priors for comparison. FINDINGS: BONES: No acute fracture is present. No bony destructive lesion is seen. JOINTS: The knee is normally aligned. There is a small joint effusion. SOFT TISSUE: Normal. IMPRESSION: Small joint effusion. DATA REPOSITORY: RADIATION DOSE DELIVERED:
== END 2023-04-14 15:46 | disposition home or self-care (01) ==
LOC: DIORS 15:46
PROVIDERS: PCP Nurse Practitioner Family; Visit Provider Physician Assistant
DX: M25.561 Pain in right knee (principal)
CPT/HCPCS: 73562

== ENCOUNTER → 2023-04-28 02:01 | Outpatient (CLI) | payer MEDICAID, SELFPAY ==
--- NOTE | 2023-04-28 07:30 | DI.MRI_ITS ---
Exam(s) MR LOWER JOINT RT WO EXAM: MR LOWER JOINT RT WO CLINICAL HISTORY: ? MMT,acute medial meniscal injury,s83.8x1a. TECHNIQUE: Multiplanar multisequence MRI was performed. COMPARISON: CR XR KNEE RT 3V AP,LAT,DELORES from 04/14/2023 FINDINGS: BONES: There is no fracture or contusion pattern. JOINTS: Fissures are seen in the articular cartilage overlying the patella. There is also mild thinn ing of the articular cartilage in the medial femoral tibial joint. There is a small amount of fluid in the joint space. TENDONS: Extensor mechanism: Unremarkable. Medial retinaculum: Unremarkable. Lateral retinaculum: Unremarkable. Popliteus: Unremarkable. MUSCLES: Unremarkable. MENISCI: There is a tear of the body and posterior horn of the medial meniscus. The root of the medi al meniscus appears diminished. The lateral meniscus is unremarkable. SOFT TISSUES: Unremarkable. LIGAMENTS: Anterior Cruciate: The fibers of the anterior cruciate ligament appear intact. The anterior cruciate ligament does appear to be decreased in size. There is mild hyperintense signal seen in the distal tendon which may represent a partial tear. Posterior Cruciate: Unremarkable. Medial Collateral:Unremarkable. Lateral Collateral: Unremarkable. OTHER: IMPRESSION: 1. Tear of the body and posterior horn of the medial meniscus. 2. Mild hyperintense signal seen in the distal ACL which may represent a partial tear. 3. Please see the above discussion for complete details. DATA REPOSITORY:
== END ==
PROVIDERS: PCP Nurse Practitioner Family; Visit Provider Student in an Organized Health Care Education/Training Program
DX: M23.221 Derangement of posterior horn of medial meniscus due to old tear or injury, right knee (principal)
CPT/HCPCS: 73721

== ENCOUNTER 2023-05-04 20:29 | Emergency (ER) | payer MEDICAID, SELFPAY ==
[2023-05-04 20:34] VITALS: BP 160/90; PULSE 74; RESP 16; TEMP 36.9; O2SAT 96
[2023-05-04] MEDS: Benzocaine 20% Gel 30 GM JAR MM (22:01)
[2023-05-04] MEDS: Penicillin V POTASSIUM 500 MG TAB, 4 TABS/BTL PO (22:01)
[2023-05-04 22:03] VITALS: BP 154/80; PULSE 72; RESP 14; O2SAT 97
--- NOTE | 2023-05-05 16:13 | ED.GENADUL_ITS ---
Discharge Plan Disposition Patient Disposition: Home Condition: Stable Discharge Details Clinical Impression: Laceration of lip, Facial trauma Primary Care Provider: Montse Emanuel ED Provider: Tammy Chaudhary Home Meds and New Rx's Prescriptions: New penicillin V potassium 500 mg tablet 500 mg PO QID Qty: 28 0RF Discharge Instructions Instructions: Laceration (ED), Head Injury (ED) Additional Instructions: Take ibuprofen and Tylenol as needed for pain Smooth foods only for the next several days until it begins to heal Stay away from citrus, tomato-based products, spicy foods, salty foods Gargle with salt water after eating You may apply the HurriCaine gel as needed for discomfort Take the antibiotic as prescribed Yogurt daily while on the antibiotic, 5 days of antibiotic should be sufficient Return with spreading redness, fever, worsening pain Referrals: Montse Emanuel [Primary Care Provider] - Discharge Data Discharge Date/Time-TO BE ENTERED AT DEPARTURE: 05/04/23 22:03 HPI General Date/Time Provider Initiated Documentation: 05/04/23 21:08 . HPI Narrative: This 47-year-old male presents with laceration to inner lip just prior to arrival. Through a softball and it bounced back, hitting him on his lower lip. Denies any dental injury or additional injuries. Denies any headache or loss of conscious. Denies history of coagulopathy. Denies any neck pain. Tetanus reportedly up-to-date per patient. Related Data Home Medications Medication Instructions Recorded Confirmed penicillin V potassium 500 mg 500 mg PO QID #28 tabs 05/04/23 tablet Previous Rx's Medication Instructions Recorded penicillin V potassium 500 mg 500 mg PO QID #28 tabs 05/04/23 tablet Allergies Allergy/AdvReac Type Severity Reaction Status Date / Time No Known Allergies Allergy Unverified 05/04/23 20:40 General Stated Complaint: Laceration DEWEY: 4 Course Vital Signs Vital signs: Vital Signs Temperature 36.9 C 05/04/23 20:34 Pulse 74 05/04/23 20:34 Respiratory Rate 16 05/04/23 20:34 Blood Pressure 160/90 H 05/04/23 20:34 Pulse Oximetry 96 05/04/23 20:34 Temperature 36.9 C 05/04/23 20:34 Temperature Source Tympanic 05/04/23 20:34 Pulse 72 05/04/23 22:03 Respiratory Rate 14 05/04/23 22:03 Respiratory Effort Normal, Non-Labored 05/04/23 20:41 Blood Pressure 154/80 H 05/04/23 22:03 Pulse Oximetry 97 05/04/23 22:03 Oxygen Delivery Method Room Air 05/04/23 20:34 Oxygen Flow Rate 0 05/04/23 20:34 Pain Level 4 05/04/23 22:03 Medical Decision Making 47-year-old male with lip laceration, approximately three quarters of an inch laceration noted to buccal mucosa, adjacent to #20, no evidence of dental fracture, small abrasion to upper lip adjacent to 9, at this time there is no indication for suturing, patient will practice supportive care Will place patient on penicillin to prevent infectious process We talked about suturing, however I think this will heal nicely and patient will consume regular fluids and soft bland foods until the wound is closed Will take ibuprofen and Tylenol as needed for pain No trismus, no maxillary tenderness, pupils equal round reactive to light and accommodation Patient is afebrile and nontoxic, GCS 15, reactive to light and accommodation Quality:SDOH Health Related Social Needs: No Data to Display PFSH All Active Problems (Updated 05/04/23 @ 21:47 by RONNI Darling) Facial trauma (Acute) Laceration of lip (Acute) Acute medial meniscal injury of right knee (Acute ~04/08/23) Foot pain, right (Acute) Medial epicondylitis of left elbow (Acute) Left elbow pain (Acute) Injury of plantar plate of right foot (Acute ~04/2020) Chondromalacia patellae of left knee (Acute ~11/2018) Medial meniscus tear (Acute ~02/2017) Hyperextension injury of left knee (Acute) Medical History (Updated 05/04/23 @ 21:47 by RONNI Darling) Tubular adenoma of colon (~02/2023) Dermatofibroma Right testicular pain (10/31/16) Internal derangement of left knee Surgical History (Updated 03/03/23 @ 10:55 by Keisha Gaspar) History of colonoscopy (~02/2023) path sent H/O arthroscopy of left knee History of hip surgery Repair of inguinal hernia (10/31/15) RIGHT WITH LARGE MESH AND PLUG/[facility] DR. WARREN Social History Smoking/Tobacco Use Status: Former Tobacco Use Quit Date: 02/09/09 Smoking risk assessment performed?: Yes Alcohol Intake: never Drug use: Never Substance use type: does not use Housing: house Current gender identity: male Do you feel safe at home: Yes Do you feel safe in your relationship?: Yes
== END 2023-05-04 22:03 | disposition home or self-care (01) ==
PROVIDERS: Emergency Provider Physician Assistant; PCP Nurse Practitioner Family
DX: S01.511A Laceration without foreign body of lip, initial encounter (principal); W22.8XXA Striking against or struck by other objects, initial encounter; Y93.64 Activity, baseball
CPT/HCPCS: 36416; 82962; 99283

== ENCOUNTER 2023-05-05 05:21 | Outpatient (CLI) | payer MEDICAID, SELFPAY ==
[2023-05-05 22:31] LABS: FSH 3.7 mIU/mL (1.4-18.1); LH 1.5 mIU/mL (1.5-9.3)
[2023-05-09 15:50] LABS: Testosterone, Total 260 ng/dL (240-950)
== END 2023-05-05 05:22 | disposition home or self-care (01) ==
LOC: LBO 05:21
PROVIDERS: PCP Nurse Practitioner Family; Visit Provider Nurse Practitioner Family
DX: R89.1 Abnormal level of hormones in specimens from other organs, systems and tissues (principal)
CPT/HCPCS: 36415; 84403; 83001; 83002

== ENCOUNTER 2023-05-15 12:48 | Day surgery (SDC) | payer MEDICAID, SELFPAY ==
[2023-05-15] VITALS (9 sets, daily range): BP systolic 106–150; BP diastolic 66–98; PULSE 55–70; RESP 12–16; TEMP 36.1–36.8; O2SAT 96–99; BMI 29.2
--- NOTE | 2023-05-15 07:25 | ROE_ITS ---
Date of service: 05/15/23 Time of Service: 15:00 Operative Note Operative Note DATE OF PROCEDURE: 05/15/23 PRE-OP DIAGNOSIS: Right knee 1. Medial meniscus tear 2. Possible lateral meniscus tear 3. Chondromalacia POST-OP DIAGNOSIS: same Right knee 1. Medial meniscus tear 2. Small lateral meniscus tear 3. Chondromalacia patella PROCEDURE: Right knee 1. Partial medial & lateral meniscectomy, CPT #52530 SURGEON: Eusebio Mejia CAMPAIGN DEVELOPER: None None ANESTHESIA TYPE: Local By Surgeon and General LMA/ETT Refer to Anesthesia Record ESTIMATED BLOOD LOSS: 5 PATHOLOGY: none sent TOURNIQUET TIME: 0 COMPLICATIONS: None Patient was transported to: PACU Patient's condition: stable Indications: Please see complete medical record for details. Findings: Exam under anesthesia: Full range of motion, no significant mechanical sens ations, stable Darci, stable varus valgus, stable anterior posterior drawer. Negative pivot shift. Arthroscopic findings: Mild suprapatellar synovitis, mild 1 x 1 cm superior patella grade 2?3 chondromalacia. Diminutive medial meniscus body into the posterior horn with partial radial into the root largely oblique white to red- white zone posterior horn medial meniscus tear. Intact ACL PCL. No loose bodies. Moderate anterior synovitis. Small posterior horn white zone lateral meniscus tear near the root. Procedure Description: In the operating room, general anesthesia was induced. The patient was positioned supine on the operating room table. All bony prominences were well- padded. Preoperative antibiotics were administered. The knee was prepped and draped in the usual sterile fashion. The correct patient, procedure, and side of the procedure were all verified prior to incision. Exam under anesthesia was performed. 10 cc of 0.25% bupivacaine containing epinephrine was infiltrated about the planned anteromedial and anterolateral knee arthroscopy portals. The portals were established and a complete diagnostic arthroscopy was performed with relevant findings detailed above. Mechanical shaver was used to debride mild synovitis in the patellofemoral compartment, torpedo usage breed lightly the patellar chondromalacia, and shaver again used to debride abundant fat pad synovitis in the anterior and intercondylar areas. The medial meniscus was then inspected. There was a flipped fragment from the posterior horn anteriorly towards the intercondylar area containing the oblique tear undersurface posterior horn with a small amount of root involvement. Using a combination of hand instruments including meniscal biters and a power shaver and working through the anteromedial and anterolateral portals the meniscus was debrided of all torn tissue to a stable margin. Care was taken to preserve as much meniscus tissue was possible. The meniscal remnant was probed and found to have a stable margin, stable root, and no other tears The lateral compartment was then inspected given the new onset lateral symptoms last night, and showed only a very small tear white zone posterior horn lateral meniscus near the root. The root was stable. The remainder of the meniscus was intact and stable to probing. The posterior medial and posterior lateral compartments and knee were then visualized without any loose bodies or other problems. Back in the patellofemoral compartment, a small area of adhesions was released and did not reveal any additional problems in the suprapatellar space. Under direct arthroscopic visualization an 18-gauge needle was passed into the knee from superolateral into the suprapatellar pouch. The knee was copiously irrigated with arthroscopic fluid until there was a clear effluent before being drained of all fluid. The anteromedial and anterolateral portals were closed in 3-0 Monocryl in a buried interrupted fashion. 20 cc of 0.25% bupivacaine with epinephrine containing 4 mg of morphine was infiltrated into the knee through the previously placed needle. Mastisol, Steri-Strips, and 4 x 4 gauze were applied over the incisions followed by sterile soft roll. The knee was then wrapped gently with an JAZ comressive bandage. The patient awoke from anesthesia without complication and was transferred to the recovery room in a stable condition.
--- NOTE | 2023-05-15 07:25 | PDOC.DSDIS_ITS ---
Date of service: 05/15/23 Time of Service: 16:30 Discharge Plan Disposition Patient Disposition: Home Condition: Stable Discharge Details Attending Provider: Eusebio Mejia Primary Care Provider: Montse Emanuel Home Meds and New Rx's Prescriptions: New naproxen 250 mg tablet 250 - 500 mg PO BID PRN (Reason: moderate pain and swelling) Qty: 40 0RF oxycodone 5 mg tablet 5 - 10 mg PO .q4-6h PRN (Reason: severe pain) Qty: 7 0RF aspirin 81 mg capsule 81 mg PO DAILY 14 Days Qty: 14 0RF Continued penicillin V potassium 500 mg tablet 500 mg PO QID Qty: 28 0RF Discharge Instructions Additional Instructions: Surgery: Right knee arthroscopy with partial medial & lateral meniscectomy Activity: Weightbearing as tolerated. Advance range of motion as comfort allows. No knee brace or crutches needed as soon as comfortable. Recommend avoiding sports, pivoting, and squatting for about 6-8 weeks. A physical therapy prescription will be sent electronically to start in about 3 weeks. Prescriptions: Aspirin 81 mg take 1 daily to prevent a blood clot for 14 days, starting tomorrow morning Naproxen 250 mg take 1-2 every 12 hours with a meal as needed for moderate pain Oxycodone 5 mg take 1-2 every 4-6 hours as needed for severe pain You may use [id number] Tylenol (acetaminophen) as needed for mild pain. These pain medications may be taken all at once or in different combinations as needed. Also, recommend Colace (docusate) as a stool softener as surgery and pain medicine cause constipation. You may try [id number] diphenhydramine (Benadryl) 25-50 mg nightly as a sleep aid Dressings: Leave dressing in place for 3 days. May then remove and leave open to air or cover incisions with Band-Aids. Leave the sticky Steri-Strips in place until they fall off or remove them after you shower. May shower after 5 days. Follow-up: 10-[address] Mejia You may take off the leg compression stockings this evening at home. You may also leave them on a few days longer if you have a history of leg swelling or edema. Let us know right away if you develop any redness, drainage, fevers, chest pain, or trouble breathing. Do not drink alcohol or drive for at least 24 hours after anesthesia. Please call the office during business hours with any questions or concerns. Stand Alone Forms: Anesthesia Discharge Inst[facility] ([facility]) Referrals: Eusebio Mejia MD [ [facility] STAFF PHYSICIAN] - 05/27/23 10:45 am Discharge Orders Discharge Orders: Discharge Order (Routine); Ordered 05/15/23 Ordered By: Eusebio Mejia DS: Diagnosis Discharge Diagnosis (1) Acute medial meniscal injury of right knee: Status: Acute (2) Acute lateral meniscus tear of right knee: Status: Acute (3) Chondromalacia patellae, right knee: Status: Acute
[2023-05-15] MEDS: Lactated Ringers 1,000 ML 30 ML IV (13:18)
--- NOTE | 2023-05-15 14:20 | W.ANESPRE ---
General Info Date of Service Date Performed: 05/15/23 Height: 6 ft Weight: 97.8 kg Body Mass Index (BMI): 29.2 Surgical Procedure: Operation Date: 05/15/23 15:25 Proposed Procedure Side Surgeon p Knee Arthroscopy, Partial Medial Meniscectomy Right Eusebio Mejia MD Actual Procedure Side Surgeon p Knee Arthroscopy, Partial Medial Meniscectomy Right Eusebio Mejia MD Pre-Op Diagnosis Post-Op Diagnosis Acute medial meniscal injury of right knee Meds Allergies and Home Medications Allergies Allergy/AdvReac Type Severity Reaction Status Date / Time No Known Allergies Allergy Verified 05/15/23 13:05 Home Medication Medication Instructions Recorded penicillin V potassium 500 mg 500 mg PO QID #28 tabs 05/04/23 tablet Current Visit Medications: Current Medications Generic Name Dose Route Start Last Admin Trade Name Freq PRN Reason Stop Dose Admin Ringer's Solution 1,000 mls @ 30 mls/hr 05/15/23 06:00 05/15/23 13:18 IV 05/15/23 23:59 30 mls/hr INFUSION KALPESH Administration Cefazolin Sodium/Dextrose 2 gm in 50 mls @ 100 mls/hr 05/15/23 06:00 Ancef Duplex IVPB 05/15/23 23:59 PREOP KALPESH Tranexamic Acid/Sodium Chloride 1,000 mg in 100 mls @ 600 mls/hr 05/15/23 06:00 IVPB 05/15/23 23:59 DIRECTED KALPESH IV Miscellaneous Supplies 1 each 05/15/23 06:00 Iv Access IV 05/15/23 23:59 DIRECTED KALPESH Oxycodone HCl 0 mg 05/15/23 07:25 Oxycodone 5 Mg Tab PO 06/14/23 07:24 Q3H PRN PRN Pain Sodium Chloride 0 ml 05/15/23 06:00 Normal Saline Flush 10 Ml Syr IV 05/15/23 23:59 PRN PRN Sodium Chloride 0 ml 05/15/23 06:00 Normal Saline 10 Ml Vial IJ 05/15/23 23:59 DIRECTED PRN Sterile Water 0 ml 05/15/23 06:00 Water,Injection,Sterile 10 Ml Vial IJ 05/15/23 23:59 DIRECTED PRN PFSH Active Problems Active Problems: Problem Status Onset Code Facial trauma S09.93XA Laceration of lip S01.511A Acute medial meniscal injury of right knee ~04/08/23 S83.8X1A Foot pain, right M79.671 Medial epicondylitis of left elbow M77.02 Left elbow pain M25.522 Injury of plantar plate of right foot ~04/2020 S99.921A Chondromalacia patellae of left knee ~11/2018 M22.42 Medial meniscus tear ~02/2017 S83.249A Hyperextension injury of left knee S89.82XA Medical History Medical History Tubular adenoma of colon (~02/2023) Dermatofibroma Right testicular pain (10/31/16) Internal derangement of left knee Surgical History Surgical History History of colonoscopy (~02/2023) path sent H/O arthroscopy of left knee History of hip surgery Repair of inguinal hernia (10/31/15) RIGHT WITH LARGE MESH AND PLUG/[facility] DR[facility]ARREN Tobacco Smoking/Tobacco Use Status: Former Tobacco Use Alcohol Alcohol Intake: never Substance Use Substance use: Never Substance use type: does not use Vital Signs and Lab Results Vital Signs Most Recent Vital Signs in EMR: Most Recent Vital Signs Temp Pulse Resp BP Pulse Ox 36.6 C 70 16 144/91 H 96 05/15/23 12:51 05/15/23 12:51 05/15/23 12:51 05/15/23 13:21 05/15/23 12:51 Lab Results Blood Type / Crossmatch: No Data to Display Complete Blood Count: No Data to Display Complete Metabolic Panel: No Data to Display Liver Function Panel: No Data to Display Coagulation Panel: No Data to Display Cardiac Panel: No Data to Display Arterial Blood Gas: No Data to Display Venous Blood Gas: No Data to Display Pancreas Panel: No Data to Display Thyroid Panel: No Data to Display Infectious Disease: No Data to Display Blood Cultures: No Data to Display Toxicology Panel: No Data to Display Anesthesia Assessment and Plan Anesthesia History Personal History: No History of Anesthesia Complications Family History: No Family History of Anesthesia Complications Exercise Tolerance Exercise Tolerance: Metabolic Equivalents>4 Pertinent Negatives Pertinent Negatives: No Symptoms of GERD Cardiac & Pulmonary Exam Cardiac Exam: Normal S1/S2 Heart Sounds Pulmonary Exam: Clear Bilateral Breath Sounds Implantable Cardiac Device Does patient have a Pacemaker or an ICD?: No Airway Exam Known Difficult Airway: No Mallampati Class: 2 Mouth Opening: Normal (> 3cm) Thyromental Distance: Greater than 3 cm Neck Range of Motion: Full ROM Neck Circumference: Normal Teeth Condition: Normal Dentition ASA Classification ASA Score: ASA 2 Emergency Case?: No NPO Status NPO Status: NPO Clears >2 hours, Solids >8 hours Anesthesia Plan Resuscitation Status: Full Code Anesthesia Technique: General Anesthesia Airway Planned: LMA Monitors Used: Standard Monitors
[2023-05-15] MEDS: ceFAZolin 2 GM/50 ML BAG IVPB (14:50)
[2023-05-15] MEDS: TRANEXAMIC ACID/SOD. CHL. 1,000 MG/100 ML BAG 600 MG IVPB (15:00)
[2023-05-15] MEDS: MORPHine 4 MG/ML SYR (15:11)
[2023-05-15] MEDS: EPINEPHrine 10 MG/10 ML ML (15:15)
[2023-05-15] MEDS: HYDROmorphone 2 MG/ML SYR IVP ×2 (16:09→16:19)
--- NOTE | 2023-05-15 17:07 | W.ANESPOSTOP ---
Postoperative Evaluation Date, Time and Location Date Performed: 05/15/23 Time Performed: 17:07 Patient Location: Day Surgery Unit Vital Signs Most Recent Imported Vital Signs: Most Recent Vital Signs Temp Pulse Resp BP Pulse Ox 36.1 C L 60 14 130/88 99 05/15/23 16:39 05/15/23 16:39 05/15/23 16:39 05/15/23 16:39 05/15/23 16:39 Pain Score Most Recent Pain Score: Most Recent Pain Score Pain Level 4 05/15/23 16:39 Assessment Mental Status: Awake (Alert & Oriented to Patient Baseline) Airway and Respiratory Function: Patent airway with normal (patient baseline) respiratory exam Cardiovascular Function: Hemodynamically Stable Hydration Status: Adequately Hydrated Nausea & Vomiting: No Nausea or Vomiting Pain: Pain is tolerable per patient Peripheral Nerve Block: Patient did not receive a nerve block
== END 2023-05-15 17:20 | disposition home or self-care (01) ==
LOC: SUR 12:48
PROVIDERS: PCP Nurse Practitioner Family; Visit Provider Student in an Organized Health Care Education/Training Program
PROC: (CPT 29870; principal; 2023-05-15 15:15)
DX: S83.8X1A Sprain of other specified parts of right knee, initial encounter (principal); X50.0XXA Overexertion from strenuous movement or load, initial encounter; S83.281A Other tear of lateral meniscus, current injury, right knee, initial encounter; M22.41 Chondromalacia patellae, right knee
CPT/HCPCS: 29880; J0690; J1100; J1170; J1885; J2001; J2250; J2270; J2405; J2704; J3010

== ENCOUNTER 2023-10-23 12:12 | Outpatient (REF) | payer MEDICAID, SELFPAY ==
[2023-10-23 15:30] LABS: Calculated LDL 204 mg/dL (<100); Cholesterol 272 mg/dL (<200); HDL Cholesterol 43 mg/dL (40-60); TSH (W/Ref FT4) 3.96 uIU/mL (0.36-3.74); Triglyceride 127 mg/dL (<150)
[2023-10-23 16:10] LABS: FREE T4 0.82 ng/dL (0.76-1.46)
[2023-10-26 09:02] LABS: FSH 3.5 mIU/mL (1.4-18.1); LH 1.3 mIU/mL (1.5-9.3)
[2023-10-27 15:12] LABS: Testosterone, Total 247 ng/dL (240-950)
== END 2023-10-23 12:13 | disposition home or self-care (01) ==
LOC: NCHCN 12:12
PROVIDERS: PCP Nurse Practitioner Family; Visit Provider Nurse Practitioner Family
DX: R89.1 Abnormal level of hormones in specimens from other organs, systems and tissues (principal)
CPT/HCPCS: 80061; 84403; 83001; 83002; 84439; 84443

== ENCOUNTER 2023-10-26 02:51 | Outpatient (CLI) | payer MEDICAID, SELFPAY ==
--- NOTE | 2023-10-26 | DI.RAD_ITS ---
Exam(s) XR TOE LT FOURTH EXAM: XR TOE LT FOURTH CLINICAL HISTORY: PAIN TOE LT FOOT, LT 4TH TOE. TECHNIQUE: 2D digital imaging was performed. Three views. COMPARISON: MR MR LOWER EXTREMITY RT WO from 05/26/2022 FINDINGS: BONES: No acute fracture is present. No bony destructive lesion is seen. JOINTS: No dislocation present. SOFT TISSUE: Normal. IMPRESSION: No evidence of acute fracture, dislocation, or subluxation. DATA REPOSITORY: RADIATION DOSE DELIVERED:
== END 2023-10-26 03:11 ==
LOC: DI 02:51
PROVIDERS: PCP Nurse Practitioner Family; Visit Provider Nurse Practitioner Family
DX: M79.675 Pain in left toe(s) (principal)
CPT/HCPCS: 73660

== ENCOUNTER 2024-07-26 17:35 | Outpatient (REF) | payer MEDICAID, SELFPAY ==
[2024-07-26 22:03] LABS: ALT 65 U/L (16-63); AST 32 U/L (15-37); Albumin 4.2 g/dL (3.4-5.0); Alkaline Phosphatase 83 U/L (46-116); Anion Gap 6.3 mmol/L (3-11); BUN 21 mg/dL (7-18); Bilirubin, Total 0.4 mg/dL (0.2-1.0); CO2 29.7 mmol/L (21.0-32.0); CREATININE 1.2 mg/dL (0.70-1.30); Calcium 8.8 mg/dL (8.5-10.1); Calculated LDL 147 mg/dL (<100); Chloride 103 mmol/L (98-107); Cholesterol 254 mg/dL (<200); Glucose 104 mg/dL (74-106); HDL Cholesterol 36 mg/dL (>or=40); Sodium 139 mmol/L (136-145); TSH (W/Ref FT4) 4.85 uIU/mL (0.36-3.74); Total Protein 7.2 g/dL (6.4-8.2); Triglyceride 356 mg/dL (<150)
[2024-07-26 22:19] LABS: FREE T4 0.77 ng/dL (0.76-1.46)
== END 2024-07-26 17:36 | disposition home or self-care (01) ==
LOC: NCHCN 17:35
PROVIDERS: PCP Nurse Practitioner Family; Visit Provider Nurse Practitioner Family
DX: E78.5 Hyperlipidemia, unspecified (principal); E03.8 Other specified hypothyroidism
CPT/HCPCS: 80053; 80061; 84439; 84443

== ENCOUNTER 2024-08-01 03:11 | Outpatient (CLI) | payer MEDICAID, SELFPAY ==
[2024-08-01] MEDS: Levalbuterol HFA 15 GM INH 4 PUFF IH (09:30)
[2024-08-01] MEDS: Inhaler, Assist Device 1 EACH MC (09:30)
--- NOTE | 2024-08-14 09:46 | W.PFT ---
Date of service: 08/01/24 Time of Service: 08:01 Pulmonary Function Test Result Indications: Dyspnea on exertion Interpretation Spirometry: There is no airflow limitation. No significant bronchodilator response. Lung Volumes: Normal lung volumes Diffusion Capacity: Normal diffusion Airway Pressure: Normal airways resistance Impression Normal pulmonary function testing Clinical Correlation therefore is recommended.
== END 2024-08-01 03:12 | disposition home or self-care (01) ==
LOC: RT 03:12
PROVIDERS: PCP Nurse Practitioner Family; Visit Provider Student in an Organized Health Care Education/Training Program
DX: R06.09 Other forms of dyspnea (principal)
CPT/HCPCS: 94060; 94726; 94729

== ENCOUNTER 2024-08-23 03:50 | Outpatient (CLI) | payer MEDICAID, SELFPAY ==
[2024-08-23] MEDS: Methacholine 100 MG VIAL IH (11:36)
[2024-08-23] MEDS: Albuterol HFA 18 GM 200 PUFF INH IH (11:37)
[2024-08-23] MEDS: Inhaler, Assist Device 1 EACH MC (11:37)
--- NOTE | 2024-09-05 09:13 | W.PFT ---
Date of service: 08/23/24 Time of Service: 10:02 Pulmonary Function Test Result Indications: Dyspnea with exertion Impression 1. Good patient effort was noted. ATS standards for reproducibility were met. 2. Spirometry showed mild obstructive lung disease with an FEV1 of 103% (4.19 L) 3. At 8 mg/mL methacholine, there was a 22% fall in FEV1 Conclusion: - mild obstructive lung disease - positive methacholine challenge test
== END 2024-08-23 03:51 | disposition home or self-care (01) ==
PROVIDERS: PCP Nurse Practitioner Family; Referring Provider Nurse Practitioner Family; Visit Provider Internal Medicine Pulmonary Disease
DX: R06.09 Other forms of dyspnea (principal); J44.9 Chronic obstructive pulmonary disease, unspecified
CPT/HCPCS: 94070 ×2; 95070; J7674